=== PATIENT | female | born 1990 | race Two or more races ===

== ENCOUNTER 2016-09-11 09:24 | Emergency (ER) | payer SELFPAY ==
[2016-09-11 10:36] LABS: ABSOLUTE NEUTROPHIL COUNT 9.9 K/mm3 (1.8-7.7); BASO % 0.2 % (0.2-1.0); EOS % 0.3 % (0.9-2.9); HEMATOCRIT 42.5 % (37.0-47.0); HEMOGLOBIN 14.1 gm/l (12.0-16.0); IMM NEUT% 0.3 % (0-1); LYMPH # 2.5 (1.0-4.8); LYMPH % 19.2 % (15-45); MEAN CELL VOLUME 89.7 fl (81.0-99.0); MEAN CORPUSCULAR HEMOGLOBIN 29.7 pg (27.0-31.0); MEAN CORPUSCULAR HGB CONC 33.2 g/dl (33.0-37.0); MEAN PLATELET VOLUME 11.1 fl (7.4-10.4); MONO # 0.5 (0.0-0.8); MONO % 3.8 % (4-12); NEUT % 76.2 % (43-75); PLATELET COUNT 282 K/mm3 (130-400)
[2016-09-11 10:49] LABS: ALB/GLOB RATIO 1.3 (>1.0); ALBUMIN 4.2 gm/dL (3.5-5.7); CALCIUM 9.4 mg/dL (8.6-10.3)
--- NOTE | 2016-09-11 12:11 | US ---
ABDOMINAL-LIMITED: 09/11/2016 10:16 AM CLINICAL HISTORY: Midepigastric pain since 2:00 AM. Emesis and diarrhea.. STUDY: Limited right upper quadrant ultrasound COMPARISON: none FINDINGS: Gallbladder: Wall thickness: Normal Cholelithiasis: none Pericholecystic Fluid: none Sonographic Szymanski's Sign: negative Bile ducts: Common bile duct measures upwards 4 to 5 mm, top normal for patient of this age. Limited visualized Liver and RUQ structures: Focal fatty sparing is noted in the gallbladder fossa. IMPRESSION: No evidence of acute cholecystitis or cholelithiasis. Focal fatty sparing is present in the gallbladder fossa. Common bile duct is top normal in measurement for patient of this age. ERCP or MRCP could be helpful in further assessment as clinically warranted. Report was uploaded to the electronic medical record at approximately 1208 hours on 09/11/2016.
[2016-09-11 12:16] LABS: URINE BILIRUBIN NEGATIVE (NEGATIVE); URINE BLOOD NEGATIVE (NEGATIVE); URINE GLUCOSE (UA) NEGATIVE (NEGATIVE); URINE LEUKOCYTE ESTERASE NEGATIVE (NEGATIVE); URINE NITRITE NEGATIVE (NEGATIVE); URINE PROTEIN TRACE (NEGATIVE); URINE UROBILINOGEN NORMAL (0-1 mg/dl)
[2016-09-11 12:17] LABS: URINE APPEARANCE CLEAR; URINE COLOR YELLOW
== END 2016-09-11 13:23 | disposition home or self-care (01) ==
LOC: ED 09:24
DX: R10.10 Upper abdominal pain, unspecified (principal); E20.9 Hypoparathyroidism, unspecified; E11.9 Type 2 diabetes mellitus without complications; Z79.84 Long term (current) use of oral hypoglycemic drugs